=== PATIENT | male | born 1950 | race Caucasian/White ===

== ENCOUNTER 2017-09-20 15:00 | Inpatient (IN) | payer MEDICARE, OTHER ==
[~2017-09-20] VITALS: Ht 177.8 cm; Wt 101.2 kg
[2017-09-20 18:30] VITALS: BP 133/75
[2017-09-20 20:05] VITALS: BP 121/74
[2017-09-20] MEDS ORDERED: Norco 10mg/325mg tab ORAL PRN (20:15)
[2017-09-20] MEDS ORDERED: Norco 5mg/325mg tab ORAL PRN (20:15)
[2017-09-20] MEDS ORDERED: Heparin 5000 units/ml inj SUBQ ONE (22:45)
[2017-09-20] MEDS ORDERED: MILK OF MA400 MG/51 ORAL (23:51)
[2017-09-20] MEDS ORDERED: SYNTHROID200 MCG ORAL (23:51)
[2017-09-20] MEDS ORDERED: TRIAMTERENE-HC1 EAC7 ORAL (23:51)
[2017-09-20] MEDS ORDERED: ATORVASTATIN CA10 MG ORAL (23:51)
[2017-09-20] MEDS ORDERED: DIVALPROEX SOD500 M2 PO (23:51)
[2017-09-20] MEDS ORDERED: SEROQUEL50 MG ORAL (23:51)
[2017-09-20] MEDS ORDERED: MULTIVITAMINS1 EAC2 ORAL (23:51)
[2017-09-20] MEDS ORDERED: ATIVAN2 MG ORAL (23:51)
[2017-09-20] MEDS ORDERED: ABILIFY10 MG ORAL (23:51)
[2017-09-20] MEDS ORDERED: FERROUS SULFAT325 MG ORAL (23:51)
[2017-09-20] MEDS ORDERED: PANTOPRAZOLE SO40 MG ORAL (23:51)
[2017-09-20] MEDS ORDERED: RESTORIL30 MG ORAL (23:51)
[2017-09-21 00:14] VITALS: BP 126/70
[2017-09-21] MEDS ORDERED: Vancomycin 1gm inj IVPB ONE (00:59)
[2017-09-21] MEDS ORDERED: Vancomycin 2gm/D5W 550ml IVPB ONE ×2 (01:00)
[2017-09-21] MEDS ORDERED: Milk of Magnesia 30ml Ud ORAL PRN (03:15)
[2017-09-21] MEDS ORDERED: LORazepam 1mg tab ORAL PRN (03:15)
[2017-09-21 04:40] VITALS: BP 100/60
[2017-09-21 04:42] LABS: BASOPHILS % (AUTO) 1.8 % (0.0-2.0); EOSINOPHILS % (AUTO) 3.7 % (0.0-3.0); MEAN CORPUSCULAR HEMOGLOBIN 30.7 PG (27.0-31.0); MEAN CORPUSCULAR HGB CONC 34.1 G/DL (32.0-36.0); MEAN CORPUSCULAR VOLUME 90 FL (80-99); MEAN PLATELET VOLUME 9.4 FL (6.5-10.1); MONOCYTES % (AUTO) 10.2 % (1.0-10.0); NEUTROPHILS % (AUTO) 53.4 % (45.0-75.0); PLATELET COUNT 229 K/UL (150-450); RED BLOOD COUNT 4.19 M/UL (4.70-6.10); RED CELL DISTRIBUTION WIDTH 12.6 % (11.6-14.8)
[2017-09-21 04:53] LABS: ANION GAP 7 mmol/L (5-15); CALCIUM 8.5 MG/DL (8.5-10.1); CARBON DIOXIDE 29 MMOL/L (21-32); CHLORIDE 100 MMOL/L (98-107); GLOMERULAR FILTRATION RATE > 60 mL/min (>60); POTASSIUM 3.5 MMOL/L (3.5-5.1); SODIUM 136 MMOL/L (136-145)
[2017-09-21 08:08] VITALS: BP 124/77
[2017-09-21] MEDS: Depakote ER 500mg tab ORAL SCH ×3 (08:44→17:11)
[2017-09-21] MEDS: Triamterene/Hctz 37.5/25 cap ORAL SCH (08:44)
[2017-09-21] MEDS: ARIPiprazole 10mg tab ORAL SCH (08:44)
[2017-09-21] MEDS: Heparin 5000 units/ml inj SUBQ SCH ×2 (08:45→20:37)
[2017-09-21] MEDS ORDERED: Flu Vaccine Quadrivalent 0.5ml IM ONE (10:00)
[2017-09-21 11:36] VITALS: BP 123/69
[2017-09-21] MEDS: Vancomycin 1.5 GM/D5W 250ML IVPB SCH (13:31)
[2017-09-21] MEDS ORDERED: D5W 550ml IV ONE (15:17)
[2017-09-21] MEDS ORDERED: NS 500ML ONE (15:17)
[2017-09-21] MEDS ORDERED: Tubing IV Secondary IV ONE (15:17)
[2017-09-21 16:00] VITALS: BP 95/55
--- NOTE | 2017-09-21 16:48 | History and Physical ---
History of Present Illness General Date patient seen: Sep 21, 2017 Reason for Hospitalization: left leg swelling Present Illness HPI 66 y/o male with a PMH of schizophrenia, HLD, hypothyroidism, GERD, HTN, and h/ o left leg cellulitis presents from [facility] for recurrent left leg erythema, pain, and edema. Patient reports that this has been going on "for a while". Further history was difficult to obtain due to patient's mental status so further history was taken from chart. He endorses pain to left leg and difficulty ambulating. Patient denies any chest pain, sob, f/c, or history of DVTs. Allergies: Uncoded Allergies: penicilin (Allergy, Mild, 09/20/17) Medication History Scheduled Aripiprazole* (Abilify*), 10 MG ORAL DAILY, (Reported) Atorvastatin Calcium* (Lipitor*), 10 MG ORAL BEDTIME, (Reported) Divalproex Sodium (Divalproex Sodium Er), 500 MG PO THREE TIMES A DAY, (Reported ) Ferrous Sulfate* (Ferrous Sulfate*), 325 MG ORAL THREE TIMES A DAY, (Reported) Levothyroxine Sodium (Synthroid), 200 MCG ORAL ACBREAKFAST, (Reported) Magnesium Hydroxide* (Milk Of Magnesia*), 30 ML ORAL HS, (Reported) Multivitamins* (Multivitamins*), 1 TAB ORAL DAILY, (Reported) Pantoprazole* (Pantoprazole*), 40 MG ORAL ACBREAKFAST, (Reported) Quetiapine Fumarate (Seroquel), 50 MG ORAL THREE TIMES A DAY, (Reported) Triamterene/Hydrochlorothiazid (Triamterene-Hctz 37.5-25 Mg Cp), 1 CAP ORAL DAILY, (Reported) Scheduled PRN Lorazepam* (Ativan*), 2 MG ORAL EVERY 4 HOURS PRN for For Anxiety, (Reported) Temazepam (Restoril*), 30 MG ORAL BEDTIME PRN for Insomnia, (Reported) Patient History Healthcare decision maker N Resuscitation status Full Code Advanced Directive on File No Review of Systems All Other Systems: negative except mentioned in HPI Physical Exam General Appearance: no apparent distress, alert, agitated HEENT: normocephalic, atraumatic Neck: non-tender, normal alignment, supple Respiratory/Chest: chest wall non-tender, lungs clear, normal breath sounds Cardiovascular/Chest: normal peripheral pulses, normal rate, regular rhythm Abdomen: normal bowel sounds, non tender, soft Extremities: other - erythema to left tibial region with 1+ edema, TTP, hot to touch Neurologic: airplane navigator II-XII grossly normal, no motor/sensory deficits, alert, oriented x 3 Last 24 Hour Vital Signs Date Time Temp Pulse Resp B/P (MAP) Pulse Ox O2 Delivery O2 Flow Rate FiO2 09/21/17 11:36 97.9 82 20 123/69 97 09/21/17 08:08 97.3 80 20 124/77 96 09/21/17 04:40 98.0 68 19 100/60 97 09/21/17 00:14 Room Air 09/21/17 00:14 98.1 79 20 126/70 98 09/20/17 20:05 Room Air 09/20/17 20:05 98.3 84 18 121/74 98 09/20/17 18:30 98.1 89 17 133/75 100 Intake and Output 09/20/17 09/21/17 19:00 07:00 Intake Total 360 ml Balance 360 ml Intake Oral 360 ml # Voids 2 Laboratory Tests Test 09/21/17 04:05 White Blood Count 10.0 K/UL (4.8-10.8) Red Blood Count 4.19 M/UL (4.70-6.10) L Hemoglobin 12.9 G/DL (14.2-18.0) L Hematocrit 37.7 % (42.0-52.0) L Mean Corpuscular Volume 90 FL (80-99) Mean Corpuscular Hemoglobin 30.7 PG (27.0-31.0) Mean Corpuscular Hemoglobin Concent 34.1 G/DL (32.0-36.0) Red Cell Distribution Width 12.6 % (11.6-14.8) Platelet Count 229 K/UL (150-450) Mean Platelet Volume 9.4 FL (6.5-10.1) Neutrophils (%) (Auto) 53.4 % (45.0-75.0) Lymphocytes (%) (Auto) 31.0 % (20.0-45.0) Monocytes (%) (Auto) 10.2 % (1.0-10.0) H Eosinophils (%) (Auto) 3.7 % (0.0-3.0) H Basophils (%) (Auto) 1.8 % (0.0-2.0) Sodium Level 136 MMOL/L (136-145) Potassium Level 3.5 MMOL/L (3.5-5.1) Chloride Level 100 MMOL/L (98-107) Carbon Dioxide Level 29 MMOL/L (21-32) Anion Gap 7 mmol/L (5-15) Blood Urea Nitrogen 15 mg/dL (7-18) Creatinine 1.0 MG/DL (0.55-1.30) Estimat Glomerular Filtration Rate > 60 mL/min (>60) Glucose Level 104 MG/DL (74-106) Calcium Level 8.5 MG/DL (8.5-10.1) Height (Feet): 5 Height (Inches): 10.00 Weight (Pounds): 223 Medications Current Medications Medications (Trade) Dose Ordered Sig/Usha Route PRN Reason Start Time Stop Time Status Last Admin Dose Admin Acetaminophen (Tylenol) 650 mg Q6H PRN ORAL Mild Pain/Temp > 100.5 09/20/17 20:15 10/20/17 20:14 Acetaminophen/ Hydrocodone Bitart ([place] 10/325) 1 ea EVERY 6 HOURS PRN ORAL Severe Pain (Pain Scale 7-10) 09/20/17 20:15 09/27/17 20:14 Acetaminophen/ Hydrocodone Bitart ([place] 5/325) 1 tab Q6H PRN ORAL Moderate Pain (Pain Scale 4-6) 09/20/17 20:15 09/27/17 20:14 09/20/17 22:09 Aripiprazole (Abilify) 10 mg DAILY ORAL 09/21/17 09:00 10/21/17 08:59 09/21/17 08:44 Divalproex Sodium (Depakote ER) 500 mg THREE TIMES A DAY ORAL 09/21/17 09:00 10/21/17 08:59 09/21/17 13:22 Ferrous Sulfate (Feosol) 325 mg THREE TIMES A DAY ORAL 09/21/17 09:00 10/21/17 08:59 09/21/17 13:22 Heparin Sodium (Porcine) (Heparin 5000 units/ml) 5,000 units EVERY 12 HOURS SUBQ 09/21/17 09:00 10/21/17 08:59 09/21/17 08:45 Levothyroxine Sodium (Synthroid) 200 mcg ACBREAKFAST ORAL 09/21/17 06:30 10/21/17 06:29 09/21/17 06:33 Lorazepam (Ativan) 2 mg EVERY 4 HOURS PRN ORAL For Anxiety 09/21/17 03:15 09/28/17 03:14 Magnesium Hydroxide (Mom) 30 ml HSPRN PRN ORAL Constipation 09/21/17 03:15 10/21/17 03:14 Multivitamins (Multivitamins) 1 tab DAILY ORAL 09/21/17 09:00 10/21/17 08:59 09/21/17 08:44 Pantoprazole (Protonix) 40 mg ACBREAKFAST ORAL 09/21/17 06:30 10/21/17 06:29 09/21/17 06:33 Quetiapine Fumarate (SEROquel) 50 mg TID ORAL 09/21/17 09:00 10/21/17 08:59 09/21/17 13:22 Temazepam (Restoril) 30 mg HSPRN PRN ORAL Insomnia 09/21/17 03:15 09/28/17 03:14 Triamterene/HCTZ (Dyazide) 1 cap DAILY ORAL 09/21/17 09:00 10/21/17 08:59 09/21/17 08:44 Vancomycin HCl (Vanco rx to dose) 1 ea DAILY PRN MISC Per rx protocol 09/20/17 23:30 10/20/17 23:29 Vancomycin HCl/ Dextrose 250 ml @ 125 mls/hr Q12H IVPB 09/21/17 13:00 09/26/17 12:59 09/21/17 13:31 Assessment/Plan Problem List: (1) Cellulitis ICD Codes: L03.90 - Cellulitis, unspecified SNOMED: 315552498 (2) SEVERE PAIN IN LEFT LOWER LEG (3) Schizophrenia ICD Codes: F20.9 - Schizophrenia, unspecified SNOMED: 17648878 (4) HLD (hyperlipidemia) ICD Codes: E78.5 - Hyperlipidemia, unspecified SNOMED: 60973033 (5) Hypothyroid ICD Codes: E03.9 - Hypothyroidism, unspecified SNOMED: 83811982 (6) GERD (gastroesophageal reflux disease) ICD Codes: K21.9 - Gastro-esophageal reflux disease without esophagitis SNOMED: 441013274 (7) HTN (hypertension) ICD Codes: I10 - Essential (primary) hypertension SNOMED: 84820110 Status: stable Assessment/Plan - Admit to inpatient - Continue home meds - IV vancomycin - U/S duplex to left lower extremity - f/u blood cultures If U/S and blood cultures negative, may be discharged with PO bactrim/keflex. d/w RN and patient Total patient care and coordination: 45 minutes Dispo: back to [facility] Delia Parker N.P. Sep 21, 2017 16:48
[2017-09-21 21:00] VITALS: BP 127/77
[2017-09-22 00:24] VITALS: BP 131/79
[2017-09-22] MEDS: Vancomycin 1.5 GM/D5W 250ML IVPB SCH (01:25)
[2017-09-22 04:35] VITALS: BP_SYST 119; BP_SYST 121; BP_DIAS 68; BP_DIAS 76
[2017-09-22 07:15] LABS: BASOPHILS % (AUTO) 1.4 % (0.0-2.0); EOSINOPHILS % (AUTO) 2.8 % (0.0-3.0); LYMPHOCYTES % (AUTO) 22.8 % (20.0-45.0); MEAN CORPUSCULAR HEMOGLOBIN 30.5 PG (27.0-31.0); MEAN CORPUSCULAR HGB CONC 33.8 G/DL (32.0-36.0); MEAN CORPUSCULAR VOLUME 90 FL (80-99); MEAN PLATELET VOLUME 9.2 FL (6.5-10.1); MONOCYTES % (AUTO) 9.9 % (1.0-10.0); NEUTROPHILS % (AUTO) 63.1 % (45.0-75.0); PLATELET COUNT 231 K/UL (150-450); RED BLOOD COUNT 4.57 M/UL (4.70-6.10); RED CELL DISTRIBUTION WIDTH 12.9 % (11.6-14.8); WHITE BLOOD COUNT 9.9 K/UL (4.8-10.8)
[2017-09-22 07:35] LABS: ANION GAP 7 mmol/L (5-15); CALCIUM 8.8 MG/DL (8.5-10.1); CARBON DIOXIDE 28 MMOL/L (21-32); CHLORIDE 103 MMOL/L (98-107); GLOMERULAR FILTRATION RATE > 60 mL/min (>60); POTASSIUM 3.9 MMOL/L (3.5-5.1); SODIUM 138 MMOL/L (136-145)
[2017-09-22 08:00] VITALS: BP 121/74
[2017-09-22] MEDS: Depakote ER 500mg tab ORAL SCH ×3 (08:40→17:09)
[2017-09-22] MEDS: Triamterene/Hctz 37.5/25 cap ORAL SCH (08:40)
[2017-09-22] MEDS: ARIPiprazole 10mg tab ORAL SCH (08:42)
[2017-09-22] MEDS: Heparin 5000 units/ml inj SUBQ SCH ×2 (08:43→20:14)
[2017-09-22 12:00] VITALS: BP 122/75
--- NOTE | 2017-09-22 14:08 | General Progress Note ---
Assessment/Plan Problem List: (1) Left leg cellulitis ICD Codes: L03.116 - Cellulitis of left lower limb SNOMED: 439780456 (2) SEVERE PAIN IN LEFT LOWER LEG (3) HTN (hypertension) ICD Codes: I10 - Essential (primary) hypertension SNOMED: 43149373 (4) Hypothyroid ICD Codes: E03.9 - Hypothyroidism, unspecified SNOMED: 47934125 (5) HLD (hyperlipidemia) ICD Codes: E78.5 - Hyperlipidemia, unspecified SNOMED: 63940399 (6) Schizophrenia ICD Codes: F20.9 - Schizophrenia, unspecified SNOMED: 29560208 Status: stable Assessment/Plan - ID consulted, appreciate rec's - Con IV vancomycin - U/S duplex to left lower extremity was neg for DVT - F/u blood cultures - Cont home meds - Pain control, supportive care, bowel regimen FULL CODE Discussed w/ RN, ID and patient regarding mgmt and dispo Dispo: back to [facility] Subjective Date patient seen: Sep 22, 2017 Time patient seen: 15:00 ROS Limited/Unobtainable: No Constitutional: Reports: weakness HEENT: Reports: no symptoms Cardiovascular: Reports: no symptoms Respiratory: Reports: no symptoms Gastrointestinal/Abdominal: Reports: no symptoms Genitourinary: Reports: no symptoms Neurologic/Psychiatric: Reports: no symptoms Endocrine: Reports: increased thirst Hematologic/Lymphatic: Reports: no symptoms Allergies: Uncoded Allergies: penicilin (Allergy, Mild, 09/20/17) All Systems: reviewed and negative except above Subjective No acute o/n events BLE venous duplex neg for DVT Cont w/ L>R leg pain/swelling/redness. Difficulty walking. Denies f/c, n/v, d/c , chest pain, SOB Objective Last 24 Hour Vital Signs Date Time Temp Pulse Resp B/P (MAP) Pulse Ox O2 Delivery O2 Flow Rate FiO2 09/22/17 12:00 97.2 103 19 122/75 97 09/22/17 08:00 97.0 73 18 121/74 96 09/22/17 04:35 97.8 70 18 121/68 97 09/22/17 00:24 98.2 75 18 131/79 96 09/21/17 21:00 98.1 80 19 127/77 96 09/21/17 16:00 98.4 72 18 95/55 96 Intake and Output 09/21/17 09/22/17 19:00 07:00 Intake Total 1010 ml 240 ml Balance 1010 ml 240 ml Intake Oral 1010 ml 240 ml # Voids 4 3 Laboratory Tests 09/22/17 05:30: White Blood Count 9.9, Red Blood Count 4.57L, Hemoglobin 14.0L, Hematocrit 41.3L , Mean Corpuscular Volume 90, Mean Corpuscular Hemoglobin 30.5, Mean Corpuscular Hemoglobin Concent 33.8, Red Cell Distribution Width 12.9, Platelet Count 231, Mean Platelet Volume 9.2, Neutrophils (%) (Auto) 63.1, Lymphocytes (% ) (Auto) 22.8, Monocytes (%) (Auto) 9.9, Eosinophils (%) (Auto) 2.8, Basophils ( %) (Auto) 1.4, Sodium Level 138, Potassium Level 3.9, Chloride Level 103, Carbon Dioxide Level 28, Anion Gap 7, Blood Urea Nitrogen 16, Creatinine 1.0, Estimat Glomerular Filtration Rate > 60, Glucose Level 97, Calcium Level 8.8 09/22/17 12:10: Vancomycin Level Trough 21.1H Height (Feet): 5 Height (Inches): 10.00 Weight (Pounds): 223 Objective General Appearance: no apparent distress, alert, agitated HEENT: normocephalic, atraumatic Neck: non-tender, normal alignment, supple Respiratory/Chest: chest wall non-tender, lungs clear, normal breath sounds Cardiovascular/Chest: normal peripheral pulses, normal rate, regular rhythm Abdomen: normal bowel sounds, non tender, soft Extremities: other - erythema to left tibial region with 1+ edema, TTP, warm to touch Neurologic: actuarial associate II-XII grossly normal, no motor/sensory deficits, alert, oriented x 3 Alena Morrow M.D. Sep 22, 2017 14:08
[2017-09-22 16:00] VITALS: BP 133/92
[2017-09-22 21:00] VITALS: BP 128/79
[2017-09-22] MEDS: Vancomycin 1gm/D5W 275ml IVPB SCH ×2 (21:07)
--- NOTE | 2017-09-22 22:31 | Infectious Diseases Prog Note ---
Assessment/Plan Assessment/Plan Full consult to follow: A) 1) left leg cellulitis 2) pmh noted 3) allergies - pcn P) 1) vancomycin 2) watch clinically 3) check labs 4) thank you Subjective Allergies: Uncoded Allergies: penicilin (Allergy, Mild, 09/20/17) Objective Vital Signs Last 24 Hour Vital Signs Date Time Temp Pulse Resp B/P (MAP) Pulse Ox O2 Delivery O2 Flow Rate FiO2 09/22/17 21:00 97.1 90 18 128/79 99 Room Air 09/22/17 16:00 97.0 112 17 133/92 96 Room Air 09/22/17 12:00 97.2 103 19 122/75 97 09/22/17 08:00 97.0 73 18 121/74 96 09/22/17 04:35 97.8 70 18 121/68 97 09/22/17 00:24 98.2 75 18 131/79 96 Height (Feet): 5 Height (Inches): 10.00 Weight (Pounds): 223 Laboratory Tests Test 09/22/17 05:30 09/22/17 12:10 White Blood Count 9.9 K/UL (4.8-10.8) Red Blood Count 4.57 M/UL (4.70-6.10) L Hemoglobin 14.0 G/DL (14.2-18.0) L Hematocrit 41.3 % (42.0-52.0) L Mean Corpuscular Volume 90 FL (80-99) Mean Corpuscular Hemoglobin 30.5 PG (27.0-31.0) Mean Corpuscular Hemoglobin Concent 33.8 G/DL (32.0-36.0) Red Cell Distribution Width 12.9 % (11.6-14.8) Platelet Count 231 K/UL (150-450) Mean Platelet Volume 9.2 FL (6.5-10.1) Neutrophils (%) (Auto) 63.1 % (45.0-75.0) Lymphocytes (%) (Auto) 22.8 % (20.0-45.0) Monocytes (%) (Auto) 9.9 % (1.0-10.0) Eosinophils (%) (Auto) 2.8 % (0.0-3.0) Basophils (%) (Auto) 1.4 % (0.0-2.0) Sodium Level 138 MMOL/L (136-145) Potassium Level 3.9 MMOL/L (3.5-5.1) Chloride Level 103 MMOL/L (98-107) Carbon Dioxide Level 28 MMOL/L (21-32) Anion Gap 7 mmol/L (5-15) Blood Urea Nitrogen 16 mg/dL (7-18) Creatinine 1.0 MG/DL (0.55-1.30) Estimat Glomerular Filtration Rate > 60 mL/min (>60) Glucose Level 97 MG/DL (74-106) Calcium Level 8.8 MG/DL (8.5-10.1) Vancomycin Level Trough 21.1 ug/mL (5.0-12.0) H Current Medications Medications (Trade) Dose Ordered Sig/Usha Route PRN Reason Start Time Stop Time Status Last Admin Dose Admin Acetaminophen (Tylenol) 650 mg Q6H PRN ORAL Mild Pain/Temp > 100.5 09/20/17 20:15 10/20/17 20:14 Acetaminophen/ Hydrocodone Bitart ([place] 10/325) 1 ea EVERY 6 HOURS PRN ORAL Severe Pain (Pain Scale 7-10) 09/20/17 20:15 09/27/17 20:14 Acetaminophen/ Hydrocodone Bitart ([place] 5/325) 1 tab Q6H PRN ORAL Moderate Pain (Pain Scale 4-6) 09/20/17 20:15 09/27/17 20:14 09/20/17 22:09 Aripiprazole (Abilify) 10 mg DAILY ORAL 09/21/17 09:00 10/21/17 08:59 09/22/17 08:42 Divalproex Sodium (Depakote ER) 500 mg THREE TIMES A DAY ORAL 09/21/17 09:00 10/21/17 08:59 09/22/17 17:09 Ferrous Sulfate (Feosol) 325 mg THREE TIMES A DAY ORAL 09/21/17 09:00 10/21/17 08:59 09/22/17 17:09 Heparin Sodium (Porcine) (Heparin 5000 units/ml) 5,000 units EVERY 12 HOURS SUBQ 09/21/17 09:00 10/21/17 08:59 09/22/17 20:14 Levothyroxine Sodium (Synthroid) 200 mcg ACBREAKFAST ORAL 09/21/17 06:30 1/19/18 06:29 09/22/17 06:02 Lorazepam (Ativan) 2 mg EVERY 4 HOURS PRN ORAL For Anxiety 09/21/17 03:15 09/28/17 03:14 Magnesium Hydroxide (Mom) 30 ml HSPRN PRN ORAL Constipation 09/21/17 03:15 10/21/17 03:14 Multivitamins (Multivitamins) 1 tab DAILY ORAL 09/21/17 09:00 10/21/17 08:59 09/22/17 08:42 Pantoprazole (Protonix) 40 mg ACBREAKFAST ORAL 09/21/17 06:30 10/21/17 06:29 09/22/17 06:01 Quetiapine Fumarate (SEROquel) 50 mg TID ORAL 09/21/17 09:00 10/21/17 08:59 09/22/17 17:09 Temazepam (Restoril) 30 mg HSPRN PRN ORAL Insomnia 09/21/17 03:15 09/28/17 03:14 Triamterene/HCTZ (Dyazide) 1 cap DAILY ORAL 09/21/17 09:00 10/21/17 08:59 09/22/17 08:40 Vancomycin HCl (Vanco rx to dose) 1 ea DAILY PRN MISC Per rx protocol 09/20/17 23:30 10/20/17 23:29 Vancomycin HCl 1 gm/Dextrose 275 ml @ 183.708 mls/hr Q12HR IVPB 09/22/17 21:00 09/27/17 20:59 09/22/17 21:07 ANGELITA CHAN Sep 22, 2017 22:31
[2017-09-23 04:00] VITALS: BP 105/57
[2017-09-23 06:55] LABS: BASOPHILS % (AUTO) 1.6 % (0.0-2.0); EOSINOPHILS % (AUTO) 3.5 % (0.0-3.0); LYMPHOCYTES % (AUTO) 26.5 % (20.0-45.0); MEAN CORPUSCULAR HEMOGLOBIN 30.6 PG (27.0-31.0); MEAN CORPUSCULAR HGB CONC 33.7 G/DL (32.0-36.0); MEAN CORPUSCULAR VOLUME 91 FL (80-99); MEAN PLATELET VOLUME 8.4 FL (6.5-10.1); MONOCYTES % (AUTO) 11.5 % (1.0-10.0); PLATELET COUNT 225 K/UL (150-450); RED BLOOD COUNT 4.36 M/UL (4.70-6.10); RED CELL DISTRIBUTION WIDTH 12.5 % (11.6-14.8); WHITE BLOOD COUNT 8.5 K/UL (4.8-10.8)
[2017-09-23 07:14] LABS: ANION GAP 10 mmol/L (5-15); CALCIUM 7.7 MG/DL (8.5-10.1); CARBON DIOXIDE 26 MMOL/L (21-32); CHLORIDE 102 MMOL/L (98-107); CREATININE 1.1 MG/DL (0.55-1.30); GLOMERULAR FILTRATION RATE > 60 mL/min (>60); POTASSIUM 3.9 MMOL/L (3.5-5.1); SODIUM 138 MMOL/L (136-145)
[2017-09-23 08:00] VITALS: BP 101/64
[2017-09-23] MEDS ORDERED: HYDROCODON-ACE1 EA13 ORAL (08:26)
[2017-09-23] MEDS ORDERED: VANCOMYCIN1 GM/2502 IVPB (08:26)
[2017-09-23] MEDS: ARIPiprazole 10mg tab ORAL SCH (10:02)
[2017-09-23] MEDS: Triamterene/Hctz 37.5/25 cap ORAL SCH (10:03)
[2017-09-23] MEDS: Depakote ER 500mg tab ORAL SCH ×2 (10:03→13:00)
[2017-09-23] MEDS: Heparin 5000 units/ml inj SUBQ SCH (10:05)
[2017-09-23] MEDS: Vancomycin 1gm/D5W 275ml IVPB SCH ×2 (11:05)
--- NOTE | 2017-09-23 14:14 | Infectious Diseases Prog Note ---
Assessment/Plan Assessment/Plan Full consult dictated: A) 1) left leg cellulitis 2) pmh noted 3) allergies - pcn P) 1) vancomycin x 1 week to finish full abx course 2) watch clinically 3) check labs 4) d/w Dr. Carvajal Subjective Allergies: Uncoded Allergies: penicilin (Allergy, Mild, 09/20/17) Objective Vital Signs Last 24 Hour Vital Signs Date Time Temp Pulse Resp B/P (MAP) Pulse Ox O2 Delivery O2 Flow Rate FiO2 09/23/17 08:00 97.5 75 20 101/64 95 Room Air 09/23/17 04:00 97.6 75 18 105/57 96 09/22/17 21:00 97.1 90 18 128/79 99 Room Air 09/22/17 16:00 97.0 112 17 133/92 96 Room Air Height (Feet): 5 Height (Inches): 10.00 Weight (Pounds): 223 Microbiology Date/Time Source Procedure Growth Status 09/21/17 19:00 Blood Blood Culture - Preliminary NO GROWTH AFTER 24 HOURS Resulted 09/21/17 18:45 Blood Blood Culture - Preliminary NO GROWTH AFTER 24 HOURS Resulted 09/21/17 05:45 Nasal Nares MRSA Culture - Final NO METHICILLIN RESISTANT STAPH AUREUS... Complete 09/21/17 05:45 Rectum VRE Culture - Final NO VANCOMYCIN RESISTANT ENTEROCOCCUS ... Complete Laboratory Tests Test 09/23/17 04:45 White Blood Count 8.5 K/UL (4.8-10.8) Red Blood Count 4.36 M/UL (4.70-6.10) L Hemoglobin 13.3 G/DL (14.2-18.0) L Hematocrit 39.6 % (42.0-52.0) L Mean Corpuscular Volume 91 FL (80-99) Mean Corpuscular Hemoglobin 30.6 PG (27.0-31.0) Mean Corpuscular Hemoglobin Concent 33.7 G/DL (32.0-36.0) Red Cell Distribution Width 12.5 % (11.6-14.8) Platelet Count 225 K/UL (150-450) Mean Platelet Volume 8.4 FL (6.5-10.1) Neutrophils (%) (Auto) 57.0 % (45.0-75.0) Lymphocytes (%) (Auto) 26.5 % (20.0-45.0) Monocytes (%) (Auto) 11.5 % (1.0-10.0) H Eosinophils (%) (Auto) 3.5 % (0.0-3.0) H Basophils (%) (Auto) 1.6 % (0.0-2.0) Sodium Level 138 MMOL/L (136-145) Potassium Level 3.9 MMOL/L (3.5-5.1) Chloride Level 102 MMOL/L (98-107) Carbon Dioxide Level 26 MMOL/L (21-32) Anion Gap 10 mmol/L (5-15) Blood Urea Nitrogen 22 mg/dL (7-18) H Creatinine 1.1 MG/DL (0.55-1.30) Estimat Glomerular Filtration Rate > 60 mL/min (>60) Glucose Level 99 MG/DL (74-106) Calcium Level 7.7 MG/DL (8.5-10.1) L Current Medications Medications (Trade) Dose Ordered Sig/Usha Route PRN Reason Start Time Stop Time Status Last Admin Dose Admin Acetaminophen (Tylenol) 650 mg Q6H PRN ORAL Mild Pain/Temp > 100.5 09/20/17 20:15 10/20/17 20:14 Acetaminophen/ Hydrocodone Bitart ([place] 10/325) 1 ea EVERY 6 HOURS PRN ORAL Severe Pain (Pain Scale 7-10) 09/20/17 20:15 09/27/17 20:14 Acetaminophen/ Hydrocodone Bitart ([place] 5/325) 1 tab Q6H PRN ORAL Moderate Pain (Pain Scale 4-6) 09/20/17 20:15 09/27/17 20:14 09/20/17 22:09 Aripiprazole (Abilify) 10 mg DAILY ORAL 09/21/17 09:00 10/21/17 08:59 09/23/17 10:02 Divalproex Sodium (Depakote ER) 500 mg THREE TIMES A DAY ORAL 09/21/17 09:00 10/21/17 08:59 09/23/17 10:03 Ferrous Sulfate (Feosol) 325 mg THREE TIMES A DAY ORAL 09/21/17 09:00 10/21/17 08:59 09/23/17 10:03 Heparin Sodium (Porcine) (Heparin 5000 units/ml) 5,000 units EVERY 12 HOURS SUBQ 09/21/17 09:00 10/21/17 08:59 09/23/17 10:05 Levothyroxine Sodium (Synthroid) 200 mcg ACBREAKFAST ORAL 09/21/17 06:30 10/21/17 06:29 09/23/17 05:48 Lorazepam (Ativan) 2 mg EVERY 4 HOURS PRN ORAL For Anxiety 09/21/17 03:15 09/28/17 03:14 Magnesium Hydroxide (Mom) 30 ml HSPRN PRN ORAL Constipation 09/21/17 03:15 10/21/17 03:14 Multivitamins (Multivitamins) 1 tab DAILY ORAL 09/21/17 09:00 10/21/17 08:59 09/23/17 10:03 Pantoprazole (Protonix) 40 mg ACBREAKFAST ORAL 09/21/17 06:30 10/21/17 06:29 09/23/17 05:48 Quetiapine Fumarate (SEROquel) 50 mg TID ORAL 09/21/17 09:00 10/21/17 08:59 09/23/17 10:03 Temazepam (Restoril) 30 mg HSPRN PRN ORAL Insomnia 09/21/17 03:15 09/28/17 03:14 Triamterene/HCTZ (Dyazide) 1 cap DAILY ORAL 09/21/17 09:00 10/21/17 08:59 09/23/17 10:03 Vancomycin HCl (Vanco rx to dose) 1 ea DAILY PRN MISC Per rx protocol 09/20/17 23:30 10/20/17 23:29 Vancomycin HCl 1 gm/Dextrose 275 ml @ 183.708 mls/hr Q12HR IVPB 09/22/17 21:00 09/27/17 20:59 09/23/17 11:05 ALKANGELITA LEON Sep 23, 2017 14:14
--- NOTE | 2017-09-23 14:54 | Discharge Summary ---
Discharge Summary Hospital Course Date of Admission Sep 20, 2017 at 17:40 Date of Discharge Sep 23, 2017 at 14:20 Admitting Diagnosis severe cellulitis Reason for Hospitalization: severe cellulitis HPI 66 y/o male with a PMH of schizophrenia, HLD, hypothyroidism, GERD, HTN, and h/ o left leg cellulitis presents from [facility] for recurrent left leg erythema, pain, and edema. Patient reports that this has been going on "for a while". Further history was difficult to obtain due to patient's mental status so further history was taken from chart. He endorses pain to left leg and difficulty ambulating. Patient denies any chest pain, sob, f/c, or history of DVTs. Consultations Infectious disease Hospital Course Pt was admitted and continued on IV vancomycin for cellulitis. BLE venous duplex negative for DVT. Pt was seen by ID who recommended to continue IV vanco at SNF for another week on discharge. 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, no motor/sensory deficits, alert, oriented x 3 Discharge diagnoses: (1) Left leg cellulitis ICD Codes: L03.116 - Cellulitis of left lower limb SNOMED: 657199141 (2) SEVERE PAIN IN LEFT LOWER LEG (3) HTN (hypertension) ICD Codes: I10 - Essential (primary) hypertension SNOMED: 96009628 (4) Hypothyroid ICD Codes: E03.9 - Hypothyroidism, unspecified SNOMED: 63264007 (5) HLD (hyperlipidemia) ICD Codes: E78.5 - Hyperlipidemia, unspecified SNOMED: 42152974 (6) Schizophrenia ICD Codes: F20.9 - Schizophrenia, unspecified SNOMED: 92689281 Discharge Medications New Medications: Vancomycin Hcl/D5w (Vancomycin-D5w 1 G/250 Ml) 1 Gm/250 Ml Plast..bag 1 GM IVPB Q12HR for 4 Days, BAG Hydrocodone Bit/Acetaminophen 10-325* (Hydrocodon-Acetaminophn 10-325*) 1 Each Tablet 1 EA ORAL EVERY 6 HOURS PRN, #30 TAB for mod to severe pain Continued Medications: Aripiprazole* (Abilify*) 10 Mg Tablet 10 MG ORAL DAILY, TAB Atorvastatin Calcium* (Lipitor*) 10 Mg Tablet 10 MG ORAL BEDTIME for hyperlipidemia, TAB Divalproex Sodium (Divalproex Sodium Er) 500 Mg Tab.er.24h 500 MG PO THREE TIMES A DAY, TAB Ferrous Sulfate* (Ferrous Sulfate*) 325 Mg Tablet 325 MG ORAL THREE TIMES A DAY, #90 TAB 0 Refills Levothyroxine Sodium (Synthroid) 200 Mcg Tablet 200 MCG ORAL ACBREAKFAST, TAB Take in the morning on an empty stomach, at least 30 minutes before food. Lorazepam* (Ativan*) 2 Mg Tablet 2 MG ORAL EVERY 4 HOURS PRN for For Anxiety, TAB Magnesium Hydroxide* (Milk Of Magnesia*) 400 Mg/5 Ml Oral.susp 30 ML ORAL HS for Constipation, ML Multivitamins* (Multivitamins*) 1 Each Tablet 1 TAB ORAL DAILY, TAB 0 Refills Pantoprazole* (Pantoprazole*) 40 Mg Tablet.dr 40 MG ORAL ACBREAKFAST, TAB Quetiapine Fumarate (Seroquel) 50 Mg Tablet 50 MG ORAL THREE TIMES A DAY, #15 TAB 0 Refills Temazepam (Restoril*) 30 Mg Capsule 30 MG ORAL BEDTIME PRN for Insomnia, #7 CAP 0 Refills Triamterene/Hydrochlorothiazid (Triamterene-Hctz 37.5-25 Mg Cp) 1 Each Capsule 1 CAP ORAL DAILY for For High Blood Pressure, CAP Discharge Condition Upon Discharge: stable Discharge Disposition Patient was discharged to SNF/Subacute Facility(03) Discharge Diagnoses: Alena Morrow M.D. Sep 23, 2017 14:54
--- NOTE | 2017-09-24 00:15 | Consultation ---
DATE OF CONSULTATION: 09/23/2017 INFECTIOUS DISEASE CONSULTATION CONSULTING PHYSICIAN: Uli Quick M.D. ATTENDING PHYSICIAN: Junior Gaffney M.D. REFERRING PHYSICIAN: Alena Morrow M.D. I was asked by Dr. Carvajal to see this patient. REASON FOR CONSULTATION: Left leg cellulitis. The patient was seen yesterday. Reason for admission/chief complaint coming into the hospital is left leg pain. HISTORY OF PRESENT ILLNESS: This is a 66-year-old male, who I saw yesterday at [facility], who presented to [facility] with left leg pain. Currently, the patient has left leg cellulitis, redness, and warmth. The patient was started on vancomycin, which I continued. Case was discussed with Dr. Carvajal. MAR was noted. Orders were noted. Notes were reviewed. PAST MEDICAL HISTORY: The patient's past medical history includes history of the following: The patient has past medical history of hyperlipidemia, hypothyroidism, schizophrenia, GERD, hypertension, and history of cellulitis in the past. MEDICATIONS: The patient is on the following medications. Upon reviewing the MAR, he is on vancomycin, heparin, omeprazole, divalproex, ferrous sulfate, vitamin C, Dyazide, Seroquel, levothyroxine, Protonix, MOM, Ativan, Restoril, vancomycin IV per pharmacy, hydrocodone and acetaminophen. ALLERGIES: Penicillin. SOCIAL HISTORY: Negative for smoking, alcohol, or drug abuse at this time. FAMILY HISTORY: Noncontributory. Negative for exposure to tuberculosis or cancer. REVIEW OF SYSTEMS: CONSTITUTIONAL: The patient has generalized weakness and fatigue. No fever, chills, night sweats, or weight loss. HEAD AND NECK: No head pain or neck pain. No thrush or dysphagia. No hemoptysis or secretions. CARDIAC: No chest pain or palpitations. GASTROINTESTINAL: No nausea, vomiting, or diarrhea. GENITOURINARY: No Champion. PULMONARY: No congestion or shortness of breath. SKIN: No rash or itching. EXTREMITIES: No extremity pain. NEUROLOGIC: No seizures. He has generalized weakness and fatigue. No fever, chills, night sweats, or weight loss. PHYSICAL EXAMINATION: GENERAL: Alert, responsive, in no acute distress. VITAL SIGNS: Temperature 97.5 degrees, pulse rate 75, respiratory rate 20, blood pressure 101/64, and saturation 98%. HEAD AND NECK: Oral exam, no thrush. Eye exam, no icterus. Normocephalic. No facial droop. No neck stiffness. Neck is supple. No JVD. HEART: Regular. No gallop or murmur. ABDOMEN: Soft. Positive bowel sounds. Nontender. LUNGS: Clear bilaterally. No rhonchi or rales. MUSCULOSKELETAL: His left leg had redness and warmth consistent with left leg cellulitis. PERIPHERAL VASCULAR: No cyanosis or gangrene. SKIN: No rash. GENITOURINARY: No Champion. No CVA tenderness. LINES: Line sites without phlebitis. NEUROLOGIC: Generalized weakness and responsive. LABORATORY AND DIAGNOSTIC DATA: Laboratory data is as follows: White count 8.5 and hemoglobin 13.3. Creatinine is 0.6. Vancomycin trough 21.1. Imaging studies, Doppler showed no DVT. This was noted and reviewed, patent venous system. Creatinine 1.1. White count 8.5 and hemoglobin 13.3. ASSESSMENT AND PLAN: 1. The patient has left leg cellulitis. This is day #3 of vancomycin. At this time, we will continue with one more week of vancomycin to cover 10-day course. I discussed the case with Dr. Carvajal and limiting antibiotic choice is penicillin. We can give clindamycin orally, however, this could increase the risk for Clostridium difficile. In addition, I feel he probably needs some more IV antibiotics. In addition, we cannot give Keflex with Bactrim or doxycycline with penicillin allergy. At this time, the best choice of antibiotic treatment will be vancomycin for another 7 days to complete a 10-day course. Watch creatinine closely. Again, this was discussed with Dr. Carvajal. 2. The patient has a history of schizophrenia. 3. Hyperlipidemia. 4. Hypothyroidism. 5. Gastroesophageal reflux disease. 6. Hypertension. 7. History of cellulitis. 8. Allergies to penicillin. 9. Family history is noncontributory. 10. Social history is negative. 11. MAR was noted. 12. Case was discussed with RN. 13. Continue treatment per primary consultants. 14. Skin care protocol. Salam Alkasspooles, M.D. DR: KIAN JOB#: [id number] CC:
--- NOTE | 2017-09-29 00:01 | Diagnostic Imaging Report ---
APPROVED REPORT CPT Code: 66043 Present Symptoms Lower Extremity Pain: Left Lower Extremity Edema: Left LEFT LEG: Venous imaging reveals a patent deep venous system. There is no evidence of thrombus within the femoral, popliteal or tibial segments. The greater saphenous vein is also within normal limits. Doppler indicates normal spontaneous flow within these segments.
== END 2017-09-23 14:20 | DRG 603 ==
LOC: 3E 17:40
DX: L03.116 Cellulitis of left lower limb (principal); F20.9 Schizophrenia, unspecified; I10 Essential (primary) hypertension; E03.9 Hypothyroidism, unspecified; E78.5 Hyperlipidemia, unspecified; K21.9 Gastro-esophageal reflux disease without esophagitis; Z88.0 Allergy status to penicillin; Z23 Encounter for immunization
CPT/HCPCS: 36415; 80048; 80202; 85025; 87040; 87081; 90630; 93970